=== PATIENT | male | born 1960 | race Caucasian/White ===

== ENCOUNTER 2016-07-18 16:31 | Emergency (ER) | payer MEDICARE, OTHER ==
[~2016-07-18 16:31] MED LIST: ALBUTEROL17 GM INH; ALLERGY RELIEF10 M6 PO; ALPRAZOLAM PO; ASPIRIN81 M2 PO; ATROVENT NEB; FLEXERIL PO; FLONASE16 GM; IBUPROFEN600 MG PO; KETOPROFEN PO; LIPITOR PO; LORTAB 10/500 T1 TAB PO; LORTAB 7.5-5001 TAB PO; MEDROL PO; MULTI VITAMIN1 EACH PO; NEPHROCAPS1 CAP PO; NORCO 10-325 TA1 TAB PO; PROAIR HFA8.5 GM IH; PROTONIX PO; PROZAC10 MG PO; SYMBICORT INH; ULTRAM PO
== END 2016-07-18 17:30 | disposition home or self-care (01) ==
LOC: CED 16:31 → CFTX 16:31
DX: L01.00 Impetigo, unspecified (principal); I10 Essential (primary) hypertension; J44.9 Chronic obstructive pulmonary disease, unspecified; K21.9 Gastro-esophageal reflux disease without esophagitis; F17.200 Nicotine dependence, unspecified, uncomplicated; F41.9 Anxiety disorder, unspecified; Z88.0 Allergy status to penicillin
CPT/HCPCS: 99282

== ENCOUNTER 2016-07-21 10:32 | Emergency (ER) | payer MEDICARE, OTHER | END 2016-07-21 12:40 | disposition home or self-care (01) | LOC: CFTX 10:32 → CED 10:32 → CFTX 12:06 | DX: A60.01 Herpesviral infection of penis (principal); Z88.0 Allergy status to penicillin; K21.9 Gastro-esophageal reflux disease without esophagitis; E78.5 Hyperlipidemia, unspecified; I10 Essential (primary) hypertension; Z90.49 Acquired absence of other specified parts of digestive tract; F17.210 Nicotine dependence, cigarettes, uncomplicated | CPT/HCPCS: 99283 ==

== ENCOUNTER → 2016-10-13 | Outpatient (CLI) | payer MEDICARE, OTHER ==
--- NOTE | ~2016-10-13 | CT138 ---
[facility] A Service of [facility] & [facility] RADIOLOGY TEXT RESULTS PATIENT: ENIO PACHECO LOCATION: [facility] : 56 UNIT #: [id number] AGE: [address]: Cirilo Goff MD SEX: M ORDER DR: [id number] [facility] [address] [place], [place] [address] [id number] O MR#: [id number] Acc #: [id number] NAME: ENIO PACHECO : 1960 SEX: M STUDY DATE/TIME: 10/13/2016 14:44 UNIT: [facility] ROOM: STUDY DESCRIPTION: CT Lung screening initial Attending Physician: Cirilo Goff M.D. Referring Physician: Cirilo Goff M.D. Ordering Physician: Cirilo Goff M.D. Primary Care Physician: [facility] MEDICAL IMAGING REPORT This report is preliminary unless electronic signature is present EXAM Lung cancer screening. INDICATIONS 55-year-old male is a current smoker with a 40 pack year history of smoking. TECHNIQUE CT of the thorax without contrast. Coronal and sagittal reconstructions were obtained. The exam was performed as a low-dose chest CT utilizing lung screening protocol. This CT exam was performed with one or more of the following radiation dose reduction techniques: automatic exposure control, adjustment of mA and/or kV according to patient size, and iterative reconstruction. CTDI volume 3 mGy. DLP 115.8 mg per centimeter. COMPARISON Chest radiograph dated 03/03/2015. FINDINGS There is a focal area of geographic ground-glass attenuation in the posterior aspect of the right upper lobe. This is most compatible with a small airway infection. No suspicious pulmonary findings are identified. The central airways are patent. There is background emphysema. There is an exophytic nodule off the inferior left thyroid. This measures up to 3.3 cm and extends into the superior mediastinum. This nodule measuring up to 2.5 cm in 2008, given the modest change, this is almost certainly a benign thyroid nodule. The mid-ascending thoracic aorta is dilated measuring 4.4 cm. Aortic arch tapers to a normal caliber at the [facility] A Service of [facility] & [facility] RADIOLOGY TEXT RESULTS PATIENT: ENIO PACHECO LOCATION: [facility] : 56 UNIT #: [id number] AGE: [address]: Cirilo Goff MD SEX: M ORDER DR: aortic arch. The descending thoracic aorta is normal in size. No pathologically enlarged mediastinal or hilar lymph nodes. IMPRESSION 1. Benign lung cancer screening. 2. Area of clustered ground-glass densities in the posterior aspect of the right upper lobe. This is most consistent with a small airway infection. Please correlate any symptoms. 3. Emphysema. 4. 4.4 cm mid ascending thoracic aortic aneurysm. ACR Lung-RADS classification 2S: Benign lung cancer screening with clinically significant or potentially clinically significant findings. RECOMMENDATIONS: Annual lung cancer screening with a low-dose chest CT. Dictated by... Baldemar Cosme M.D. THIS IS AN ELECTRONICALLY VERIFIED REPORT Baldemar Cosme M.D. at 10/15/2016 1:23 PM HARJIT/[email or web address] TD: 10/15/2016 02:47 JOB #: [id number] MEDICAL IMAGING REPORT Page 1 of 1 COPY
== END | disposition home or self-care (01) ==
LOC: CCAT 10-10 15:00
DX: F17.210 Nicotine dependence, cigarettes, uncomplicated (principal)
CPT/HCPCS: G0297